=== PATIENT | male | born 1940 | race Caucasian/White ===

== ENCOUNTER 2020-11-02 13:18 | Outpatient (CLI) | payer MEDICARE, SELFPAY | END 2020-11-02 13:19 | disposition home or self-care (01) | LOC: CHSIMG 13:20 | PROVIDERS: PCP Internal Medicine; Visit Provider Internal Medicine | DX: I50.9 Heart failure, unspecified (principal) | CPT/HCPCS: 93306 ==

== ENCOUNTER 2021-06-01 11:26 | Emergency (ER) | payer MEDICARE, SELFPAY ==
--- NOTE | ~2021-06-01 | XR_ITS ---
EXAMINATION: XR chest 2V EXAM DATE: 06/01/2021 13:02 INDICATION: productive cough times one week . TECHNIQUE: Frontal and lateral projections of the chest obtained and reviewed. Comparison is made to prior examination from 05/02/2019. FINDINGS: Left basilar linear opacity probably subsegmental atelectasis. No confluent consolidation, pneumothorax or pleural effusion suspected. Mild cardiomegaly. There is aortic arteriosclerosis. Some thoracic spondylosis. IMPRESSION: 1. Left basilar linear opacity probably atelectasis. 2. Mild cardiomegaly. Reviewed, dictated and finalized at location A. [employer]
[2021-06-01 12:37] VITALS: BP 139/80; PULSE 56; RESP 18; TEMP 36.7; O2SAT 94
[2021-06-01 12:49] LABS: Influenza A QL RT-PCR Negative (Negative); Influenza B QL RT-PCR Negative (Negative); SARS-CoV-2 RNA PCR Negative (Negative)
--- NOTE | 2021-06-01 12:52 | PC.NURSE ---
Radiology called for x-ray.
--- NOTE | 2021-06-01 13:41 | ED.URI ---
HPI - URI/Sore Throat General Chief Complaint: Upper Respiratory Infection Stated Complaint: COUGH CONGESTION Time Seen by Provider: 06/01/21 11:29 Source: patient Mode of arrival: ambulatory Limitations: no limitations History of Present Illness HPI Narrative: 81-year-old man comes in today complaining of cough productive of jung sputum and nasal congestion for the last 2 days. He denies any fever, shortness of breath, chest pain, vomiting or diarrhea. He denies any sick contacts. Has been immunized against COVID. MD elicited complaint: cough, sore throat and rhinorrhea Pertinent past history: pneumonia Onset (ago): day(s) (2) Consistency: constant and other Severity: moderate Description of mucous: other (Jung) Able to tolerate fluids by mouth: Yes Exacerbating factors: nothing Relieving factors: nothing Associated symptoms: nasal congestion, sore throat and cough Treatments prior to arrival: none Related Data Allergies Allergy/AdvReac Type Severity Reaction Status Date / Time No Known Allergies Allergy Verified 06/01/21 12:33 Review of Systems Review of Systems: All systems reviewed & are unremarkable except as noted in HPI and below Constitutional: Constitutional: Denies chills and Denies fever(s) Eyes: Eyes: Denies change in vision and Denies photophobia ENT: Denies dysphagia, Reports nasal congestion and Reports sore throat Cardiovascular: Cardiovascular: Denies chest pain and Denies radiating jaw, neck or arm pain Respiratory: Respiratory: Reports chest congestion, Reports cough, Denies dyspnea and Denies wheezing Gastrointestinal: Gastrointestinal: Denies abdominal pain, Denies diarrhea, Denies nausea and Denies vomiting Genitourinary: Genitourinary: Denies hematuria, Denies dysuria and Denies urinary frequency Musculoskeletal: Musculoskeletal: Denies back pain, Denies arthralgias and Denies joint swelling Integumentary/Breasts: Skin/Breast: Denies pruritus, Denies erythema and Denies rash Neurologic: Denies vertigo, Denies dizziness and Denies syncope Allergic/Immunologic: Allergic/Immunologic: Denies lip swelling, Denies throat swelling and Denies tongue swelling PMFSH Past Medical History Medical History (Updated 06/01/21 @ 13:48 by Bjorn Ram MD) BPH (benign prostatic hyperplasia) GERD (gastroesophageal reflux disease) Hypertension Surgical History Surgical History (Updated 06/01/21 @ 13:44 by Bjorn Ram MD) History of appendectomy Social History Social History (Updated 06/01/21 @ 13:44 by Bjorn Ram MD) Smoking status: Never smoker Alcohol intake: never Substance use: never Living arrangements: with family Exam Const: General: healthy appearing, no acute distress and alert Orientation/consciousness: patient oriented x3 Limitations: no limitations HENMT: Head: normal to inspection Ears: external ears normal, TM's normal bilaterally and EAC's normal General nose exam: Normal nares present Face and sinus: normal facial exam Mouth: Yes moist mucous membranes Throat: posterior oropharynx normal Eyes: Conjunctivae: conjunctivae normal Pupils: Equal, round and reactive pupils present EOM: EOMs intact bilaterally Resp: Effort & Inspection: normal respiratory effort and not labored Auscultation: clear to auscultation bilaterally, no rales, no rhonchi and no wheezes Cardio: Rate: regular rate Rhythm: regular rhythm Heart sounds: no murmurs Skin: General skin exam: normal color, no jaundice and no pallor Rashes: no rashes Neuro: General: patient oriented x3, moves all extremities, no focal motor deficits and CN's II-XI intact bilaterally Speech: normal speech Gait exam (Neuro): Normal gait present Extrem: General: normal to inspection and no clubbing, cyanosis or edema Psych: Appearance: grossly normal and well kempt Mental Status: mental status grossly normal Affect: normal affect Attitude: cooperative Thought content: Yes Normal thou
[2021-06-01 13:45] VITALS: BP 147/67; PULSE 50; RESP 18; O2SAT 94
== END 2021-06-01 14:20 | disposition home or self-care (01) ==
PROVIDERS: Emergency Provider Emergency Medicine; PCP Internal Medicine
DX: R05.9 Cough, unspecified (principal); Z20.822 Contact with and (suspected) exposure to COVID-19; K21.9 Gastro-esophageal reflux disease without esophagitis; I10 Essential (primary) hypertension
CPT/HCPCS: 71046; 87502; 99283; C9803; U0003; U0005

== ENCOUNTER 2021-10-19 11:34 | Outpatient (CLI) | payer MEDICARE, SELFPAY ==
--- NOTE | ~2021-10-19 | XR_ITS ---
EXAMINATION: XR chest 2V DATE: 10/19/2021 12:03 INDICATION: Dyspnea. TECHNIQUE: Frontal and lateral views of the chest were obtained. COMPARISON: Chest 2 views 06/01/2021 FINDINGS: There is mild atelectasis at left lung base. No pleural effusion or pneumothorax. The heart size is normal. There is mild chronic anterior wedging of multiple vertebral bodies. IMPRESSION: 1. Mild atelectasis at left lung base. Reviewed, dictated and finalized at location A.
--- NOTE | ~2021-10-19 | XR_ITS ---
EXAMINATION: XR hip LT min 2V DATE: 10/19/2021 12:04 INDICATION: Left hip pain. TECHNIQUE: 2 views of left hip were obtained. COMPARISON: None. FINDINGS: Bone alignment is normal. No fracture. There is mild left hip osteoarthritis. There is cayetano drocalcinosis in the left hip joint. IMPRESSION: 1. Mild left hip osteoarthritis. Reviewed, dictated and finalized at location A.
== END 2021-10-19 11:35 | disposition home or self-care (01) ==
LOC: CHSIMG 11:36
PROVIDERS: PCP Internal Medicine; Visit Provider Internal Medicine
DX: R06.00 Dyspnea, unspecified (principal); M25.552 Pain in left hip
CPT/HCPCS: 71046; 73502

== ENCOUNTER 2021-10-24 09:27 | Outpatient (CLI) | payer MEDICARE, SELFPAY | END 2021-10-24 09:28 | disposition home or self-care (01) | LOC: CHSCARD 09:29 | PROVIDERS: PCP Internal Medicine; Visit Provider Internal Medicine | DX: R06.00 Dyspnea, unspecified (principal); M25.552 Pain in left hip | CPT/HCPCS: 94060; 94726; 94729 ==

== ENCOUNTER 2021-10-25 07:27 | Outpatient (CLI) | payer MEDICARE, SELFPAY ==
--- NOTE | ~2021-10-25 | MR_ITS ---
EXAMINATION: MR lumbar spine wo con DATE: 10/25/2021 08:30 INDICATION: Low back pain. TECHNIQUE: Magnetic resonance imaging (MRI) of the lumbar spine was performed without intravenous con trast. Sequences included sagittal T2-weighted FSE, sagittal T2-weighted FS FSE, sagittal T1-weighted FSE, and axial T2-weighted FSE. COMPARISON: CT abdomen and pelvis 06/10/2018 FINDINGS: There is 6 degrees levocurvature of lumbar spine. There is 3 mm retrolisthesis of L1 on L2. There is mild chronic anterior wedging of T11 and T12 vertebral bodies. There is moderately decrease d disc height at L1-L2 and L2-L3, severely decreased disc height at L3-L4 and L4-L5, and moderately d ecreased disc height at L5-S1 with endplate remodeling. The distal spinal cord signal intensity is no rmal. The conus medullaris is at T12. 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 The following disc levels a re specifically discussed: L1-L2: The disc is bulging. There is moderate bilateral facet joint osteoarthritis. There is mild rohit ateral neural foraminal stenosis. There is mild central canal stenosis. L2-L3: The disc is bulging and has an annular fissure. There is severe bilateral facet joint osteoart hritis. There is mild bilateral neural foraminal stenosis. There is mild central canal stenosis. L3-L4: The disc is bulging and has an annular fissure. There is severe bilateral facet joint osteoart hritis. There is mild bilateral neural foraminal stenosis. There is mild central canal stenosis. L4-L5: The disc is bulging and has an annular fissure. There is severe bilateral facet joint osteoart hritis. There is mild right and moderate left neural foraminal stenosis. There is mild central canal stenosis. L5-S1: The disc is bulging. There is severe bilateral facet joint osteoarthritis. There is mild right and moderate left neural foraminal stenosis. There is mild central canal stenosis. There is stenosis of the lateral recesses, moderate on the right and severe on the left. IMPRESSION: 1. Severe lumbar spondylosis. Reviewed, dictated and finalized at location B.
== END 2021-10-25 07:28 | disposition home or self-care (01) ==
LOC: CHSIMG 07:28
PROVIDERS: PCP Internal Medicine; Visit Provider Internal Medicine
DX: M54.50 Low back pain, unspecified (principal)
CPT/HCPCS: 72148

== ENCOUNTER 2021-11-10 10:43 | Outpatient (RCR) | payer MEDICARE, SELFPAY ==
--- NOTE | 2021-11-10 13:33 | PTOPEVAL ---
Thank you for referring Guillermo Veras to [facility] The patient is scheduled to be seen for therapy? ____x/week for ___ weeks. Please review, sign, date and return this plan of care FELIZ. I agree with and certify that the following plan of care is medically necessary. Referring Physician Date Admitting Provider: Attending Provider: Hernan Londono MD Referring Provider: *PT Outpatient Evaluation Start: 11/10/21 11:02 Freq: Status: Active Protocol: Document 11/10/21 11:10 [facility] (Rec: 11/10/21 12:58 [id number]) Therapy Assessment Status Assessment Status Assessment Status Evaluation Evaluation Information Problem Diagnosis Pain in Lumbar Spine with Pain in the Sciatic Distribution on L LE Onset 11/08/21 Additional Evaluation Detail oswestry = 44% functionally declined Subjective Information Pt reports that over the Query Text:As Reported By Patient/ course of the last two months, Family he has had increasing amounts of pain in his L leg. He originally thought he had a sprained ankle, but then noticed that the pain has continued to persist. He has gotten imaging showing spondylosis. He has more pain in the L ankle and back of the L leg but also has some back pain. Standing and walking will increase his pain as soon as he gets out of bed. Diagnostic Tests MRI For This Problem Yes: Spondylosis ; No HNP Prior Level of Function Comments Additional Prior Level of Function Pt previously was able to Comments dress himself with no problems but now states he has difficulty when bending over and putting on socks as well as walking. Pain Assessment Timing of Pain Assessment Timing of Pain Assessment Assessment Pain Scale Pain Scale Used Numeric (1 - 10) Self Report Pain Assessment Lower Back Reported Pain Level 4 Pain Description Aching,Numbness Pain Radiation Left Leg Pain Frequency Continuous Greatest Pain Intensity 8 Pain Aggravating Factors ADL's,Changing Position, Exercise/Activity,Walking Pain Score Pain Score 4: Self Report Interventions Used I
== END 2021-11-17 10:03 | disposition home or self-care (01) ==
LOC: CHSPT 10:43
PROVIDERS: PCP Internal Medicine; Visit Provider Internal Medicine
DX: M54.50 Low back pain, unspecified (principal)
CPT/HCPCS: 97014; 97110; 97161; 97162; G0283

== ENCOUNTER 2021-12-08 10:10 | Outpatient (CLI) | payer MEDICARE, SELFPAY ==
--- NOTE | 2021-12-08 12:00 | NEURO_ITS ---
Impression: # Complains of numbness of feet. # Asymmetrical sensory/ motor neuropathy. # Neurogenic changes on needle/EMG exam. # Clinical correlation recommended. Nerve Conduction Studies Anti Sensory Summary Table Stim Site NR Peak (ms) P-T Amp (?V) Site1 Site2 Delta-P (ms) Dist (cm) Jasen (m/s) Left Sup Fibular Anti Sensory (Ant Lat Mall) NO RESPONSE 14 cm NR 14 cm Ant Lat Mall 16.0 Right Sup Fibular Anti Sensory (Ant Lat Mall) NO RESPONSE 14 cm NR 14 cm Ant Lat Mall 16.0 Left Sural Anti Sensory (Lat Mall) NO RESPONSE Calf NR Calf Lat Mall 16.0 Right Sural Anti Sensory (Lat Mall) NO RESPONSE Calf NR Calf Lat Mall 16.0 Motor Summary Table Stim Site NR Onset (ms) O-P Amp (mV) Site1 Site2 Delta-0 (ms) Dist (cm) Jasen (m/s) Left Peroneal Motor (Vastus Med) NO RESPONSE Ankle NR Popit Ankle 0.0 Popit NR Right Peroneal Motor (Vastus Med) Ankle 4.1 1.9 Popit Ankle 8.8 39.0 44 Popit 12.9 1.5 Left Tibial Motor (Abd Frazier Brev) NO RESPONSE Ankle NR Knee NR Right Tibial Motor (Abd Frazier Brev) Ankle 4.5 2.7 Knee Ankle 11.0 44.0 40 Knee 15.5 2.0 F Wave Studies NR F-Lat (ms) L-R F-Lat (ms) Left Peroneal (Mrkrs) (EDB) NO RESPONSE NR Right Peroneal (Mrkrs) (EDB) 59.04 Left Tibial (Mrkrs) (Abd Hallucis) NO RESPONSE NR Right Tibial (Mrkrs) (Abd Hallucis) 58.30 EMG Side Muscle Nerve Root Ins Act Fibs Amp Dur Recrt Comment Right AntTibialis Dp Br Fibular L4-5 Nml Nml Nml Nml Nml Right Gastroc Tibial S1-2 Nml Nml Nml Nml Nml Right Fibularis Long Sup Br Fibular L5-S1 Nml Nml Nml Nml Nml Right Flex Dig Long Tibial L5-S2 Nml Nml Nml Nml Nml Right Ext Dig Brev Dp Br Fibular L5, S1 Nml Nml Nml Nml Nml Left AntTibialis Dp Br Fibular L4-5 Nml Nml Nml >12ms Reduced Left Gastroc Tibial S1-2 Nml Nml Nml >12ms Reduced Left Fibularis Long Sup Br Fibular L5-S1 Nml Nml Nml >12ms Reduced Left Flex Dig Long Tibial L5-S2 Nml Nml Nml >12ms Reduced Left Ext Dig Brev Dp Br Fibular L5, S1 Nml Nml Nml >12ms Reduced MTDD
== END 2021-12-08 10:11 | disposition home or self-care (01) ==
LOC: ANHNEURO 10:11
PROVIDERS: PCP Internal Medicine
DX: G62.9 Polyneuropathy, unspecified (principal)
CPT/HCPCS: 95886; 95910

== ENCOUNTER 2022-04-17 11:57 | Emergency (ER) | payer MEDICARE, SELFPAY ==
--- NOTE | ~2022-04-17 | XR_ITS ---
EXAMINATION: XR knee RT 3V DATE: 04/17/2022 12:27 INDICATION: Right knee pain and swelling. TECHNIQUE: 3 views of right knee were obtained. COMPARISON: Right tibia and fibula radiographs 10/27/2016 FINDINGS: There is a total right knee arthroplasty with patellar resurfacing in near-anatomic alignme nt. No fracture. No periprosthetic lucency to suggest loosening or infection. There is a large knee j oint effusion. There are loose bodies in the knee joint. IMPRESSION: 1. Total right knee arthroplasty in near-anatomic alignment. 2. Large right knee joint effusion with loose bodies. Reviewed, dictated and finalized at location A.
[2022-04-17 12:00] VITALS: BP 138/54; PULSE 63; RESP 17; TEMP 36.8; O2SAT 95
[2022-04-17 12:06] VITALS: BP 138/54; PULSE 68; RESP 17; TEMP 36.8; O2SAT 94
--- NOTE | 2022-04-17 12:09 | ED.EXTPRO ---
HPI - Extremity Problem General Chief complaint: Extremity Problem,Nontraumatic Stated complaint: right knee pain Time Seen by Provider: 04/17/22 12:08 Source: patient Mode of arrival: ambulatory History of Present Illness HPI Narrative: 82-year-old male with a history of hypertension, GERD, BPH, arthritis status post bilateral knee replacement presents to the ER with -- right knee pain/ swelling for past 3 days. No history of trauma. Complains of morning stiffness which gets better as the day goes by. MD Complaint: joint paint Onset (ago): day(s) ( started 3 days ago) Pain Consistency: constant Location: right and knee Quality: aching Radiation: none Relieving factors: nothing Exacerbating factors: nothing Related Data Home Medications Medication Instructions Recorded Confirmed amlodipine 10 mg tablet 10 mg PO DAILY 04/17/22 04/17/22 dutasteride 0.5 mg capsule 0.5 mg PO DAILY 04/17/22 04/17/22 furosemide 40 mg tablet 40 mg PO DAILY 04/17/22 04/17/22 losartan 100 mg tablet 100 mg PO DAILY 04/17/22 04/17/22 metoprolol succinate 50 mg 50 mg PO DAILY 04/17/22 04/17/22 tablet,extended release 24 hr omeprazole 40 mg capsule,delayed 40 mg PO BID 04/17/22 04/17/22 release potassium chloride 10 mEq 10 meq PO TID 04/17/22 04/17/22 capsule,extended release pravastatin 40 mg tablet 40 mg PO DAILY 04/17/22 04/17/22 tamsulosin 0.4 mg capsule 0.4 mg PO DAILY 04/17/22 04/17/22 Allergies Allergy/AdvReac Type Severity Reaction Status Date / Time No Known Allergies Allergy Verified 04/17/22 12:15 Review of Systems Review of Systems: All systems reviewed & are unremarkable except as noted in HPI and below Constitutional: Constitutional: Reports as per HPI and Reports no additional constitutional complaints Eyes: Eyes: Reports as per HPI and Reports no additional eye complaints ENT: Reports system reviewed and no additional complaints, except as documented and Reports as per HPI Cardiovascular: Cardiovascular: Reports as per HPI and Reports no additional cardiovascular complaints Respiratory: Respiratory: Reports as per HPI and Reports no additional respiratory complaints Gastrointestinal: Gastrointestinal: Reports as per HPI and Reports no additional gastrointestinal complaints Genitourinary: Genitourinary: Reports no additional male genitourinary complaints and Reports as per HPI Musculoskeletal: Musculoskeletal: Reports no additional musculoskeletal complaints and Reports as per HPI Comments: right knee pain with swelling. Integumentary/Breasts: Skin/Breast: Reports system reviewed and no additional complaints, except as docu and Reports as per HPI Neurologic: Reports system reviewed and no additional complaints, except as documented and Reports as per HPI Psychiatric: Psychiatric: Reports no additional psychiatric complaints and Reports as per HPI Endocrine: Endocrine: Reports no additional endocrine complaints and Reports as per HPI Hematologic/Lymphatic: Hematologic/Lymphatic: Reports no additional hematologic/lymphatic complaints and Reports as per HPI Allergic/Immunologic: Allergic/Immunologic: Reports no additional allergic/immunologic complaints and Reports as per HPI PMFSH Past Medical History Medical History BPH (benign prostatic hyperplasia) GERD (gastroesophageal reflux disease) Hypertension Surgical History Surgical History History of appendectomy Social History Social History Smoking status: Never smoker Alcohol intake: never Substance use: never Exam Const: General: no acute distress Nutritional Appearance: well nourished Orientation/consciousness: patient oriented x3 Limitations: no limitations HENMT: Head: normal to inspection Ears: external ears normal Face/Nose/Sinus: Normal external nose present F
[2022-04-17 13:52] VITALS: BP 142/65; PULSE 56; RESP 16; TEMP 36.9; O2SAT 96
== END 2022-04-17 13:57 | disposition home or self-care (01) ==
PROVIDERS: Emergency Provider Internal Medicine Critical Care Medicine; PCP Internal Medicine
DX: M25.461 Effusion, right knee (principal); M23.41 Loose body in knee, right knee; M25.561 Pain in right knee; K21.9 Gastro-esophageal reflux disease without esophagitis; I10 Essential (primary) hypertension
CPT/HCPCS: 73562; 99283

== ENCOUNTER 2023-06-05 13:38 | Outpatient (RCR) | payer MEDICARE, SELFPAY ==
--- NOTE | 2023-06-05 14:34 | OPREHPOC ---
Outpatient Therapy Plan of Care This is a Multidisciplinary Plan of Care that may contain components documented by all disciplines (PT, OT, and ST.) PT Problem 1 PT Problem #1 Knowledge Deficit PT Goal 1 Goal The patient will be independent in a home exercise program. Target Visit 10 PT Problem 2 PT Problem #2 Impaired Balance PT Goal 1 Goal The patient will improve the Tinetti Balance score to 22/28 indicating less fall risk. Target Visit 10 PT Problem 3 PT Problem #3 Impaired Gait PT Goal 1 Goal The patient will demonstrate the ability to ambulate 600 feet without shuffling to improve steadiness with gait. Target Visit 10 PT Problem 4 PT Problem #4 Impaired Endurance PT Goal 1 Goal The patient will be able to ambulate 1,200 feet during the 6 minute walk test to improve community ambulation. Target Visit 10
--- NOTE | 2023-06-05 14:34 | PTOPEVAL1 ---
Assessment and note entered by Melissa Mckeon, PT Evaluation Information Assessment Status Evaluation Diagnosis Unsteady Gait, Peripheral Neuropathy Subjective Information Guillermo Veras reports he has had a diagnosis of peripheral neuropathy making his feet numb. He notes the numbness got worse about two months ago for unknown reasons. He denies falls recently. He uses a walking stick most days. He notes he does have near falls when he first starts walking. He has had lightheadedness occasionally when he stands up. He does take medicine for high blood pressure. He also notes he has a bad right hip. Reported Pain Level Pain Score 0: Self Report Assessment PT Clinical Summary Guillermo Veras presents with unsteady gait and decreased balance due to peripheral neuropathy. He has difficulty with walking without an assistive device and unsteadiness when he first stands up. He objectively demonstrates decreased right > left hip abduction strength, decreased balance, and impaired gait. He is a high fall risk per standardized balance tests. He will benefit from skilled PT to address these limitations. Plan of Care Interventions Neuro Re-education,Patient/Caregiver Educati, Therapeutic Activities,Therapeutic Exercise PT Services Indicated Yes Treatment Frequency and 2 times a week for 10 visits Duration These treatments will address the objective and functional deficits as defined above. The patient will be advanced safely and appropriately in order for the patient to progress towards his/her prior level of function. Additional exercises will be introduced and as well as a comprehensive home exercise program upon discharge, if needed, ?to ensure carryover of functional gains achieved in the clinic. This treatment plan has been reviewed and agreement upon by the patient.
--- NOTE | 2023-07-06 16:46 | OPREHPOC ---
Outpatient Therapy Plan of Care This is a Multidisciplinary Plan of Care that may contain components documented by all disciplines (PT, OT, and ST.) PT Problem 1 PT Problem #1 Knowledge Deficit PT Goal 1 Goal The patient will be independent in a home exercise program. Target Visit 10 Progress Met PT Problem 2 PT Problem #2 Impaired Balance PT Goal 1 Goal The patient will improve the Tinetti Balance score to 22/28 indicating less fall risk. Target Visit 16 Comment progressing PT Problem 3 PT Problem #3 Impaired Gait PT Goal 1 Goal The patient will demonstrate the ability to ambulate 600 feet without shuffling to improve steadiness with gait. Target Visit 10 Progress Met PT Problem 4 PT Problem #4 Impaired Endurance PT Goal 1 Goal The patient will be able to ambulate 1,200 feet during the 6 minute walk test to improve community ambulation. Target Visit 16
--- NOTE | 2023-07-06 16:46 | PTOPREEVAL ---
Assessment and note entered by Katelyn Taylor DPT Evaluation Information Assessment Status Evaluation Diagnosis Unsteady Gait, Peripheral Neuropathy Subjective Information Patient reports he has improved since start of PT. He reports his hip pain has been less. He denies pain since start of care. He reports he feels his balance has improve but can still have instances of shuffling. He reports he would like to continue with PT. Reported Pain Level Pain Score 2: Self Report Assessment PT Clinical Summary Mr. Veras has attended 10 visits of skilled PT. He is progress with gait and balance at this time. He does continue to demonstrate shuffling gait pattern and have impaired scoring on the Tinetti Balance test. He has improved distance with 6 minute walk test but is still limited in community ambulation distance. He would benefit from continued skilled PT to address remaining impairments and return to PLOF. Plan of Care Interventions Neuro Re-education,Patient/Caregiver Educati, Therapeutic Activities,Therapeutic Exercise PT Services Indicated Yes Treatment Frequency and 2x weekly for 6 visits Duration These treatments will address the objective and functional deficits as defined above. The patient will be advanced safely and appropriately in order for the patient to progress towards his/her prior level of function. Additional exercises will be introduced and as well as a comprehensive home exercise program upon discharge, if needed, ?to ensure carryover of functional gains achieved in the clinic. This treatment plan has been reviewed and agreement upon by the patient.
--- NOTE | 2023-07-26 16:53 | OPREHPOC ---
Outpatient Therapy Plan of Care This is a Multidisciplinary Plan of Care that may contain components documented by all disciplines (PT, OT, and ST.) PT Problem 1 PT Problem #1 Knowledge Deficit PT Goal 1 Goal The patient will be independent in a home exercise program. Target Visit 10 Progress Met PT Problem 2 PT Problem #2 Impaired Balance PT Goal 1 Goal The patient will improve the Tinetti Balance score to 22/28 indicating less fall risk. Target Visit 16 Progress Met Comment . PT Problem 3 PT Problem #3 Impaired Gait PT Goal 1 Goal The patient will demonstrate the ability to ambulate 600 feet without shuffling to improve steadiness with gait. Target Visit 10 Progress Met PT Problem 4 PT Problem #4 Impaired Endurance PT Goal 1 Goal The patient will be able to ambulate 1,200 feet during the 6 minute walk test to improve community ambulation. Target Visit 16 Progress Not Met
--- NOTE | 2023-07-26 16:54 | PTOPDC ---
Assessment and note entered by JT File, PT Evaluation Information Assessment Status Discharge Diagnosis Unsteady Gait, Peripheral Neuropathy Subjective Information patient reports he feels Good today. he has no pain, and has had no falls. he reports he is ready to make today his last therapy visit. Reported Pain Level Pain Score 0: Self Report Assessment PT Clinical Summary mr ayala presents to skilled PT today for his 16th skilled therapy visit. he has had no falls during his time in therapy. he has now achieved goals for tinetti balance score, and displays a low fall risk. however, he has not met goal for ambulation distance during 6 minute walk test. he is ready to DC skilled PT and continue with independent HEP at home. patient may benefit from bi-weekly attendance in fall prvention class. he was educated in this free class today. Plan of Care PT Services Indicated Yes
== END 2023-07-26 18:11 | disposition home or self-care (01) ==
LOC: CHSPT 13:38
PROVIDERS: PCP Internal Medicine; Visit Provider Internal Medicine
DX: R26.81 Unsteadiness on feet (principal); G62.9 Polyneuropathy, unspecified
CPT/HCPCS: 97110; 97112; 97150; 97161

== ENCOUNTER 2023-10-10 10:18 | Outpatient (CLI) | payer MEDICARE, SELFPAY ==
[2023-10-10 10:31] LABS: Basophils Absolute Auto 0.03 K/mm3 (0.00-0.10); Basophils Percent Auto 0.3 % (0.0-1.0); Eosinophils Absolute Auto 0.22 K/mm3 (0.02-0.50); Eosinophils Percent Auto 2.3 % (1.0-6.0); Hematocrit 45.9 % (37.0-46.0); Hemoglobin 15.1 g/dL (12.4-15.3); Immature Granulocyte Absolute 0.03 K/mm3 (0.00-0.00); Immature Granulocyte Percent A 0.3 % (0.0-0.0); Lymphocytes Absolute Auto 1.25 K/mm3 (1.10-4.50); Lymphocytes Percent Auto 13.3 % (18.0-42.0); Mean Corpuscular HGB Conc 32.9 g/dL (32-36); Mean Corpuscular Hemoglobin 31.7 pg (27.0-31.0); Mean Corpuscular Volume 96.2 fL (78.0-102.0); Mean Platelet Volume 9.5 fl (8.7-11.0); Monocytes Absolute Auto 0.75 K/mm3 (0.10-0.90); Neutrophils Absolute Auto 7.09 K/mm3 (1.70-7.20); Neutrophils Percent Auto 75.8 % (50.0-70.0); Platelet Count Result 203 K/mm3 (150-420); Red Blood Count 4.77 M/mm3 (4.70-6.10); Red Cell Distribution Width 12.1 % (11.6-14.4); White Blood Count 9.4 K/mm3 (4.8-10.8)
[2023-10-10 11:13] LABS: Anion Gap 8 mmol/L (4-12); Blood Urea Nitrogen 22 mg/dL (7-18); Calcium 10.6 mg/dL (8.5-10.1); Carbon Dioxide 32 mmol/L (21-32); Chloride 105 mmol/L (98-108); Estimated Glomerular Filt Rate > 60; Glucose 98 mg/dL (70-99); Osmolality Calculated 303 mOsm/kg (285-295); Potassium 4.8 mmol/L (3.5-5.1); Sodium 145 mmol/L (136-145)
== END 2023-10-10 10:19 | disposition home or self-care (01) ==
LOC: CHSLAB 10:20
PROVIDERS: PCP Internal Medicine; Visit Provider Internal Medicine Cardiovascular Disease
DX: Z01.812 Encounter for preprocedural laboratory examination (principal); I10 Essential (primary) hypertension
CPT/HCPCS: 36415; 80048; 85025

== ENCOUNTER 2025-01-13 12:55 | Outpatient (CLI) | payer MEDICARE, SELFPAY ==
--- NOTE | ~2025-01-13 | US_ITS ---
EXAMINATION: US carotid duplex BI DATE: 01/13/2025 13:24 INDICATION: Dizziness TECHNIQUE: Grayscale, color Doppler, and pulsed Doppler images of the cervical carotid arteries were obtained. The degree of vessel stenosis is placed in one of the following categories: normal, <50%, 5 0-69%, >=70% but less than near-occlusion, near-occlusion, or total occlusion. Note that percent sten osis relative to normal distal artery lumen diameter is indirectly measured from velocity measurement s as described by Enrrique, et al. Radiology 2003; 229:340-346. Notes: Normal: Peak systolic velocity <125 centimeters/sec and no plaque <50%. Peak systolic velocity <125 ( EDV <40; ICA/CCA PSV ratio <2.0; used these factors only a tandem lesions or low cardiac output or co ntralateral disease) 50-69 %: PSV 125-230 (EDV 40-100; ratio 2-4) >= 70% but less than near occlusion: PSV greater than 230 (EDV > 100; ratio> 4.0) Near Occlusion: PSV that is variable; markedly narrowed lumen Occlusion: Absent flow on color/spectral Doppler and no lumen on hyman scale. COMPARISON: None. FINDINGS: RIGHT: The right common carotid artery (CCA) peak systolic velocity (PSV) is 128 cm/s. The right internal ca rotid artery (ICA) PSV is 114 cm/s. The right ICA end-diastolic velocity (EDV) is 17 cm/s. The right ICA/CCA PSV ratio is 0.9. The external carotid artery (ECA) PSV is 122 cm/s. There is antegrade flow in the right vertebral artery. LEFT: The left CCA PSV is 98 cm/s. The left ICA PSV is 136 cm/s. The left ICA EDV is 20 cm/s. The left ICA/ CCA PSV ratio is 1.4. The ECA PSV is 152 cm/s. There is antegrade flow in the left vertebral artery. IMPRESSION: 1. Less than 50% stenosis in the right internal carotid artery by sonographic criteria. 2. 50-69% stenosis in the left internal carotid artery by sonographic criteria. Reviewed, dictated and finalized at location A. IMPRESSION: 1. Less than 50% stenosis in the right internal carotid artery by sonographic c riteria. 2. 50-69% stenosis in the left internal carotid artery by sonographic criteria.
--- OUTSIDE RECORDS SUMMARY | 2025-01-13 13:07 | XMS_ITS | Referral Summary ---
Author Organization [facility] [address] Address [address] [place] [address] Care Team Providers Care Program Clinician Name Role Phone Hernan Londono MD Primary Care Provider [phone] Encounters Date Type Department Care Team Description 12/11/[address] [facility] Medical [facility] Cardiology [address] [place] [phone] Danny Johnson MD 12/11/2024 12:30 PM CDT Ancillary Procedure [facility] Cardiology [address] [facility] [address] [place] [phone] Bifascicular block; Bradycardia; Cardiac pacemaker in situ from Last 3 Months Allergies No known active allergies Medications dutasteride (AVODART) 0.5 mg capsule Take 1 tablet by mouth daily 12/15/2011 Active aspirin 81 mg chewable tablet Take by mouth daily 11/10/2003 Active omeprazole (PriLOSEC) 40 mg capsule Take 1 capsule (40 mg total) by mouth 2 (two) times a day 01/18/2022 Active tamsulosin (FLOMAX) 0.4 mg extended release capsule Take by mouth daily 12/30/2003 Active amLODIPine (NORVASC) 10 mg tablet Take 1 tablet (10 mg total) by mouth daily 11/16/2021 Active furosemide (LASIX) 40 mg tablet Take 1 tablet (40 mg total) by mouth daily 11/16/2021 Active coenzyme Q10 100 mg capsule Take 2 tablets by mouth daily 12/15/2011 Active potassium chloride ER 10 mEq CR capsule TAKE 1 CAPSULE BY MOUTH THREE TIMES DAILY WITH FOOD 01/18/2022 Active losartan (COZAAR) 100 mg tablet Take 1 tablet (100 mg total) by mouth daily Active ibzbf-7-xgf-epa -dpa-fish oil 1,050-1,200 mg capsule 1 capsule Active ascorbic acid (VITAMIN C) 500 mg tablet,chewable Acti ve yiyirwgu71-fmxa -Lmfolate-algal 27 mg iron-1.13 mg-581.92 mg capsule Take by mouth Active cyanocobalamin (Vitamin B-12) 100 mcg tabletIndicatio ns:Prevention of Vitamin B12 Deficiency Take 1 tablet (100 mcg total) by mouth daily Active cholecalciferol (VITAMIN D-3) 1,000 unit capsule Take 1 capsule (1,000 Units total) by mouth daily 12/15/2011 Active levOCARNitine tartrate 250 mg capsule Take 500 mg by mouth daily Active metoprolol XL (TOPROL-XL) 25 mg extended release tabletIndicatio ns:Coronary artery disease of [place] artery of [place] heart with stable angina pectoris Take 1 tablet (25 mg total) by mouth daily 90 tablet 3 12/04/2023 Active ezetimibe (ZETIA) 10 mg tablet Take 1 tablet by mouth once daily 90 tablet 10/20/2024 Active pravastatin (PRAVACHOL) 80 mg tablet Take 1 tablet by mouth once daily 90 tablet 10/20/2024 Active Active Problems Problem Noted Date Diagnosed Date Cardiac pacemaker in situ 10/10/2023 Overview (10/10/2023): [employer] Assurity Dual Pacemaker. Dx; Bradycardia, Bifascicilar Block. DOI 10/15/2023-Aric. Alexandru hernandez. Morbid (severe) obesity due to excess calories 0 09/14/2023 Abnormal stress test 01/23/2023 HUNTER (dyspnea on exertion) 10/10/2022 Other chest pain 06/07/2022 First degree AV block 06/07/2022 Bradycardia 06/07/2022 Bifascicular block 06/07/2022 Primary hypertension 02/03/2022 Coronary artery disease of n ative artery of [place] heart with stable angina pectoris 02/03/2022 Mixed hyperlipidemia 02/03/2022 Abnormal ECG 02/03/2022 Class 1 obesity due to exces s calories with serious comorbidity and body mass index (BMI) of 34.0 to 34.9 in adult 02/03/2022 Social History Tobacco Use Types Packs/Day Years Used Date Smoking Tobacco: Former Cigarettes Q uit: 2000 Tobacco Cessation:Counseling Given: Not Answered AUDIT-C Answer Date Recorded Frequency of Alcohol Consumption Not on file 10/15/2023 Q2: How many drinks containi ng alcohol do you have on a typical day when you are drinking? Patient does not drink Frequency of Binge Drinking Not on file 02/2024 Personal Safety Answer Date Recorded Have you ever been in or are you currently in a harmful physical or emotional relationship or is someone making you feel afraid or unsafe? Denies 10/15/2023 Sex and Gender Information Value Date Recorded Sex Assigned at Not on file Legal Sex Male 11:19 AM CDT Gender Identity Not on file Sexual Orientation Not on file Last Filed Vital Signs Vital Sign Reading Time Taken Comments Blood Pressure 156/74 08/15/2024 1:47 PM FIRST AID OFFICER Pulse 78 08/15/2024 1:47 PM FIRST AID OFFICER Temperature 36.4 C (97.5 F) 10/16/2023 7:45 AM CDT Respiratory Rate 14 01/15/2024 9:54 AM CDT Oxygen Saturation 94% 08/15/2024 1:47 PM FIRST AID OFFICER Inhaled Oxygen Concentration - - Weight 116.6 kg (257 lb) 08/15/2024 1:47 PM FIRST AID OFFICER Height 180.3 cm (5' 11) 08/15/2024 1:47 PM FIRST AID OFFICER Body Mass Index 35.84 08/15/2024 1:47 PM FIRST AID OFFICER Plan of Treatment Not on file Medical Devices Implanted Type Area Catering Sous Chef Device Identifier Shelf Expiration Date Model / Serial / Lot [employer] Tendril Sts 6fr 58cm Is-1 Connector Active Fixation Bipolar Soft 2087tc/58 - [id number] - [id number] Implanted:Qty: 1 on 10/15/2023 by Tyron Corbett MD at [facility] [employer] 09/05/2026 2088TC/58 / [id number] / [employer] Tendril Sts 6fr 52cm Is-1 Connector Active Fixation Bipolar Soft 52 - [id number] - [id number] Implanted:Qty: 1 on 10/15/2023 by Tyron Corbett MD at [facility] Lead [employer] 09/05/2026 2088TC/52 / [id number] / [employer] Assurity Mri [id number] Chamber Is-1 Connector Thk6mm Pacemaker [id number] - [id number] - [id number] Implanted:Qty: 1 on 10/15/2023 by Tyron Corbett MD at [facility] Pacemaker [employer] 02/05/2025 [id number] / [id number] / Procedures Procedure Name Priority Date/Time Associated Diagnosis Comments DEVICE CHECK - REMOTE Routine 12/11/2024 4:57 PM CDT Bifascicular block Bradycardia Cardiac pacemaker in situ from Last 3 Months Results * DEVICE CHECK - REMOTE (12/11/2024 4:57 PM CDT) Anatomical Region Laterality Modality Other Narrative 12/30/2024 12:50 PM CDT [employer] Assurity Dual Pacemaker. Dx; Bradycardia, Bifascicular Block. NSVT noted on 01/14/24. DOI 10/15/2023-Aric. [employer] remote. [employer] remote alert and notification received for long AT AF episode. 8 hours of AFib noted on 12/07/2024. Ventricular rate controlled. Presenting rhythm: APVP. Medications: ASA 81 mg, Toprol-XL. See scanned report. [place] remote scheduled 01/28/2025. Office follow-up with Dr. Johnson scheduled 02/17/2025. Angelica Mary, RN Danny Johnson MD CV CARDIAC SERVICES PROC EDURES Final Result from Last 3 Months Insurance MEDICARE MEDICARE BLUE CROSS MEDICARE SUPPLEMENT MEDICARE [facility] Advance Directives For more information, please contact: [phone] * Full Code (Latest Code Status on File) Date Activated Date Inactivated Comments 10/15/2023 9:42 AM 10/16/2023 4:02 PM Care Teams Program Clinician Relationship Specialty Start Date End Date Hernan Londono MD [address] [place] [address] PCP - General Internal Medicine 10/20/21
--- OUTSIDE RECORDS SUMMARY | 2025-01-13 13:07 | XMS_ITS | Encounter Summary ---
Author Organization [facility] Address [address] [place] [address] Care Team Providers Care Adhesive Bonding Machine Operator Name Role Phone Hernan Londono MD Primary Care Provider [phone] Jung Cueto MD Unavailable [phone] Encounter Details Date Type Department Care Team (Late st Contact Info) Description 03/13/[address] [facility] CONVERSION [address] [place] [address] , Generic Conversion, Social History Tobacco Use Types Packs/Day Years Used Date Smoking Tobacco: Never Assessed Sex and Gender Information Value Date Recorded Sex Assigned at Not on file Legal Sex Male 10:44 PM CDT Gender Identity Not on file Sexual Orientation Not on file documented as of this encounter Plan of Treatment Not on file documented as of this encounter Visit Diagnoses Not on filedocumented in this encounter Care Teams Adhesive Bonding Machine Operator Relationship Specialty Start Date End Date Hernan Londono MD [address] [place] [address] PCP - General INTERNAL MEDICINE 09/19/17 Jung Cueto MD [address] [place] [address] [place] Miter Operator CARDIOVASCULAR DISEASE 09/19/17 documented as of this encounter
--- OUTSIDE RECORDS SUMMARY | 2025-01-13 13:07 | XMS_ITS | Clinical Summary ---
Author Organization [facility] [address] [facility] [address] Address [address] [place] [address] Care Team Providers Care Sap Basis Administrator Name Role Phone Hernan Londono MD Primary Care Provider [phone] Allergies No known active allergies Medications dutasteride [...] (100 mg total) by mouth daily Active rmdpp-9-mox-epa -dpa-fish oil 1,050-1,200 mg capsule 1 capsule Active ascorbic acid (VITAMIN C) 500 mg tablet,chewable Acti ve mbaejyew67-yjhr -Lmfolate-algal 27 mg iron-1.13 mg-581.92 mg capsule [...] extended release tabletIndicatio ns:Coronary artery disease of [place] artery of [place] heart with stable angina pectoris Take 1 [...] artery disease of n ative artery of [place] heart with stable angina pectoris 02/03/2022 Mixed hyperlipidemia 02/03/2022 Abnormal ECG 02/03/2022 Class 1 obesity due to exces s calories with serious comorbidity and body mass index (BMI) of 34.0 to 34.9 in adult 02/03/2022 Encounters Date Type Department Care Team Description 12/11/2024 12:30 PM CDT Ancillary Procedure [facility] Cardiology [address] [place] [address] [place] [phone] Bifascicular block; Bradycardia; Cardiac pacemaker in situ 12/11/2024 Telephone [facility] [address] [place] [address] [place] [phone] Danny Johnson MD from Last 3 Months Surgical History Surgery Date Site/Laterality Comments KNEE SURGERY Left APPENDECTOMY HERNIA REPAIR Medical History Medical History Date Comments Hyperlipidemia CHF (congestive heart failure) (HCC) Hypertension Enlarged prostate Neuropathy Bradycardia Family History Medical History Relation Name Comments Cancer Father Heart failure Mother Relation Name Status Comments Father Mother Social History Tobacco Use Types Packs/Day Years Used Date Smoking Tobacco: Former Cigarettes Q uit: 2001 Tobacco Cessation:Counseling Given: Not Answered AUDIT-C Answer [...] on file Sexual Orientation Not on file Obstetrics History Last Filed Vital Signs Vital Sign Reading Time Taken Comments Blood Pressure 156/74 08/15/2024 1:47 PM NATIONAL COVERAGE SPECIALIST Pulse 78 08/15/2024 1:47 PM NATIONAL COVERAGE SPECIALIST Temperature 36.4 C (97.5 F) 10/16/2023 7:45 AM CDT Respiratory Rate 14 01/15/2024 9:54 AM CDT Oxygen Saturation 94% 08/15/2024 1:47 PM NATIONAL COVERAGE SPECIALIST Inhaled Oxygen Concentration - - Weight 116.6 kg (257 lb) 08/15/2024 1:47 PM NATIONAL COVERAGE SPECIALIST Height 180.3 cm (5' 11) 08/15/2024 1:47 PM NATIONAL COVERAGE SPECIALIST Body Mass Index 35.84 08/15/2024 1:47 PM NATIONAL COVERAGE SPECIALIST Plan of Treatment Health Maintenance Due Date Last Done Comments Depression Screening 1941 DTaP/Tdap/Td Vaccine (1 - Tdap) 1952 Hepatitis B Screening 1959 Zoster Vaccine (1 of 2) 1991 Well Visit 65+ 2006 Pneumococcal vaccine 65+ (2 of 2 - PPSV23) 02/03/2015 12/09/2014, 04/30/2009 Covid-19 Vaccine (4 - 2024-2 5 season) 2024 06/21/2021, 11/19/2020, 10/22/2020 Fall Risk Assessment 10/15/2024 10/16/2023, 10/09/19 Influenza Vaccine (#1) 2025 , 04/27/2020, 04/30/2019, Additional history exists Medical Devices Implanted Type Area Human Resources Benefits Administrator Device Identifier Shelf Expiration Date Model / Serial / Lot [employer] Tendril Sts 6fr 58cm Is-1 Connector Active Fixation Bipolar Soft 2088tc/58 - [id number] - [id number] Implanted:Qty: 1 on 10/15/2023 by Tyron Corbett MD at [facility] Lead [employer] 09/05/2026 2088TC/58 / [id number] / [employer] Tendril Sts 6fr 52cm Is-1 Connector Active Fixation Bipolar Soft 2087tc/52 - [id number] - [id number] Implanted:Qty: 1 on 10/15/2023 by Tyron Corbett MD at [facility] Lead [employer] 09/05/20268TC/52 / [id number] / [employer] Assurity Mri [id number] Chamber Is-1 Connector Thk6mm Pacemaker [id number] - [id number] - [id number] Implanted:Qty: 1 on 10/15/2023 by Tyron Corbett MD at [facility] Pacemaker [employer] 02/05/2025 [id number] / [id number] / Procedures Procedure Name Priority Date/Time Associated Diagnosis Comments DEVICE CHECK - REMOTE Routine 12/11/2024 4:57 PM CDT Bifascicular block Bradycardia Cardiac pacemaker in situ from Last 3 Months Results * DEVICE CHECK - REMOTE (12/11/2024 4:57 PM CDT) Anatomical Region Laterality Modality Other Narrative 12/30/2024 12:50 PM CDT Gauthier Assurity Dual Pacemaker. Dx; Bradycardia, Bifascicular Block. NSVT noted on 01/14/24. DOI 10/15/2023-Aric. Alexandru remote. [place] remote alert and notification received for long AT AF episode. 8 hours of AFib noted on 12/07/2024. Ventricular rate controlled. Presenting rhythm: APVP. Medications: ASA 81 mg, Toprol-XL. See scanned report. [place] remote scheduled 01/28/2025. Office follow-up with Dr. Johnson scheduled 02/17/2025. Angelica Mary RN Danny Johnson MD CV CARDIAC SERVICES PROC EDURES Final Result from Last 3 Months Insurance MEDICARE MEDICARE [facility] MEDICARE SUPPLEMENT MEDICARE [facility] Advance Directives For more information, please contact: [phone] * Full Code (Latest Code Status on File) Date Activated Date Inactivated Comments 10/15/2023 9:42 AM 10/16/2023 4:02 PM Care Teams Sap Basis Administrator Relationship Specialty Start Date End Date Hernan Londono MD [address] [place] [address] PCP - General Internal Medicine 10/20/21
--- OUTSIDE RECORDS SUMMARY | 2025-01-13 13:07 | XMS_ITS | Clinical Summary ---
Author Organization [facility] Address [address] [place] [address] Care Team Providers Care Contact Lens Blocker Name Role Phone Hernan Londono MD Primary Care Provider [phone] Jung Cueto MD Unavailable [phone] Allergies No known active allergies Medications Vitamin D, Cholecalciferol , 1000 UNITS Cap Take 1 tablet by mouth daily. 2 Active Ascorbic Acid (VITAMIN C) 500 MG Cap Take 1 tablet by mouth daily. 2 Active Simethicone 80 MG Tab Simethicone 80mg; take as directed; 0; 15-Dec-2011; Active 2 Active omeprazole 20 MG capsule Take 1 tablet by mouth daily. 2 Active Multiple Vitamins-Minera ls (MULTIVITAMIN ADULT OR) Take by mouth daily. 4 Active furosemide (LASIX) 20 MG tablet Take 1 tablet by mouth daily. 2 Active Garlic 1000 MG capsule Take 1 tablet by mouth daily. 2 Active tamsulosin (FLOMAX) 0.4 MG Cap Take by mouth daily. 4 Active Co-Enzyme Q-10 100 MG Cap Take 2 tablets by mouth daily. 2 Active dutasteride (AVODART) 0.5 MG capsule Take 1 tablet by mouth daily. 2 Active aspirin 81 MG chewable tablet Chew by mouth daily. 4 Active amlodipine 10 MG tablet Take 1 tablet by mouth daily. 2 Active metoprolol succinate 50 MG 24 hr tablet Take 50 mg by mouth daily. 8 Active pravastatin 20 MG tablet Take 20 mg by mouth nightly at bedtime. 7 Active losartan 100 MG tablet Take 100 mg by mouth daily. Active potassium chloride CR 10 MEQ CR capsule TAKE 1 CAPSULE BY MOUTH THREE TIMES DAILY WITH FOOD 0 Active fish oil (OMEGA-3 FATTY ACID) 1000 MG Cap capsule Take 1,000 mg by mouth 2 (two) times daily. Active Active Problems Problem Noted Date Diagnosed Date Coronary artery disease invo lving zuni coronary artery of zuni heart without angina pectoris 04/15/2020 BPH (benign prostatic hyperplasia) 09/25/2017 Dyspnea 09/25/2017 GERD (gastroesophageal reflux disease) 8 Hypercholesteremia 09/25/2017 Hypertension 09/25/2017 Obesity 09/25/2017 Resolved Problems Problem Noted Date Diagnosed Date Resolved Date Peripheral neuropathy 09/25/20172017 Social History Tobacco Use Types Packs/Day Years Used Date Smoking Tobacco: Former Cigarettes Q uit: 1997 Smokeless Tobacco: Never Sex and Gender Information Value Date Recorded Sex Assigned at Not on file Legal Sex Male 10:44 PM CDT Gender Identity Not on file Sexual Orientation Not on file Last Filed Vital Signs Vital Sign Reading Time Taken Comments Blood Pressure 143/61 03/31/2020 10:25 AM CDT Pulse 65 03/31/2020 10:20 AM CDT Temperature 36.4 C (97.5 F) 10/05/2017 11:41 AM CDT Respiratory Rate 22 03/31/2020 10:20 AM CDT Oxygen Saturation 97% 03/31/2020 10:20 AM CDT Inhaled Oxygen Concentration - - Weight 120.7 kg (266 lb) 03/31/2020 10:20 AM CDT Height 180.3 cm (5' 11) 03/31/2020 10:20 AM CDT Body Mass Index 37.1 03/31/2020 10:20 AM CDT Plan of Treatment Health Maintenance Due Date Last Done Comments ASCVD Statin 1941 DTaP, Tdap and Td Vaccines ( 1 - Tdap) 1960 Zoster Vaccines (1 of 2) 1991 Annual Medicare Wellness Visit 2006 Pneumococcal Vaccine: 50+ Years (2 of 2 - PPSV23) 02/03/2015 12/09/2014 RSV Immunization or 60+ Years (1 - 1-dose 75+ series) 2016 ASCVD LDL 08/07/2018 08/07/2017, 12/22/2003 COVID-19 Vaccine ( - 2023-2 5 season) 2024 Meningococcal B Vaccine Aged Out No l onger eligible based on patient's age to complete this topic Meningococcal Vaccine Aged Out No park raj eligible based on patient's age to complete this topic RSV Immunizations Under 20 Months Aged Out No longer eligible b ased on patient's age to complete this topic Procedures Procedure Name Priority Date/Time Associated Diagnosis Comments LIPID PANEL Routine 08/07/2017 from Last 3 Months or Most Recently Relevant to Health Maintenance Results * LIPID PANEL (08/07/2017) CHOLESTEROL 194 HDL 53 TRIGLYCERIDES 213 LDL (CALCULATED) 98 08/07/2017 us Doc [facility] LABORATORY Final Result from Last 3 Months or Most Recently Relevant to Health Maintenance Insurance [place] [address] [place] [address] MEDICARE Advance Directives * Full Code (Latest Code Status on File) Date Activated Date Inactivated Comments 10/05/2017 5:21 PM 10/05/2017 7:36 PM Care Teams Contact Lens Blocker Relationship Specialty Start Date End Date Hernan Londono MD [address] [place] [address] PCP - General INTERNAL MEDICINE 09/19/17 Jung Cueto MD [address] [place] [address] [place] Acupuncture Physician CARDIOVASCULAR DISEASE 09/19/17
== END 2025-01-13 12:56 | disposition home or self-care (01) ==
PROVIDERS: PCP Internal Medicine; Visit Provider Internal Medicine
DX: I65.23 Occlusion and stenosis of bilateral carotid arteries (principal)
CPT/HCPCS: 93880

== ENCOUNTER 2025-03-01 11:30 | Emergency (ER) | payer MEDICARE, SELFPAY ==
[2025-03-01 11:31] VITALS: BP 164/57; RESP 18; TEMP 37.7
[2025-03-01 11:34] VITALS: PULSE 58; O2SAT 97
--- NOTE | 2025-03-01 11:36 | ED.UPPEXIN ---
HPI - Extremity Injury (Upper) General Chief Complaint: Extremity Injury, Upper Stated Complaint: left arm swelling/pain Time Seen by Provider: 03/01/25 11:35 Source: patient Mode of arrival: ambulatory Limitations: no limitations History of Present Illness HPI narrative: patient is an 84-year-old male with a left hand inflammation and pain for the past 2 days. He did have a cat scratch from his own cat up-to-date on vaccines 2 weeks ago to the same area. He is having passive and active range of motion and palpation pain. MD complaint: injury to: left, wrist, hand and finger Other Extremity Injury: Left: fingers, hand and wrist Other injuries: none Place: home Severity: mild Severity scale (1-10): 3 Relieving factors: none Exacerbating factors: movement of extremity Context: other ( Cat scratch 2 weeks ago to the left hand as well as now 2 days of left hand pain and swelling and redness) Associated symptoms: other ( fever) Treatments prior to arrival: other ( none) Related Data Home Medications ?Medication ?Instructions ?Recorded ?Confirmed ?Last Taken ?Type amlodipine 10 mg tablet 10 mg PO DAILY 04/17/22 04/17/22 Unknown History dutasteride 0.5 mg capsule 0.5 mg PO DAILY 04/17/22 04/17/22 Unknown History furosemide 40 mg tablet 40 mg PO DAILY 04/17/22 04/17/22 Unknown History losartan 100 mg tablet 100 mg PO DAILY 04/17/22 04/17/22 Unknown History metoprolol succinate 50 mg 50 mg PO DAILY 04/17/22 04/17/22 Unknown History tablet,extended release 24 hr omeprazole 40 mg capsule,delayed 40 mg PO BID 04/17/22 04/17/22 Unknown History release potassium chloride 10 mEq 10 meq PO TID 04/17/22 04/17/22 Unknown History capsule,extended release pravastatin 40 mg tablet 40 mg PO DAILY 04/17/22 04/17/22 Unknown History tamsulosin 0.4 mg capsule 0.4 mg PO DAILY 04/17/22 04/17/22 Unknown History Allergies Allergy/AdvReac Type Severity Reaction Status Date / Time No Known Allergies Allergy Verified 03/01/25 11:35 Review of Systems Review of Systems: All systems reviewed & are unremarkable except as noted in HPI and below Constitutional: Constitutional: Reports no additional constitutional complaints Eyes: Eyes: Reports no additional eye complaints ENT: Reports system reviewed and no additional complaints, except as documented Cardiovascular: Cardiovascular: Reports no additional cardiovascular complaints Respiratory: Respiratory: Reports no additional respiratory complaints Gastrointestinal: Gastrointestinal: Reports no additional gastrointestinal complaints Genitourinary: Genitourinary: Reports no additional male genitourinary complaints Musculoskeletal: Musculoskeletal: Reports no additional musculoskeletal complaints Integumentary/Breasts: Skin/Breast: Reports system reviewed and no additional complaints, except as docu Neurologic: Reports system reviewed and no additional complaints, except as documented Psychiatric: Psychiatric: Reports no additional psychiatric complaints Endocrine: Endocrine: Reports no additional endocrine complaints Hematologic/Lymphatic: Hematologic/Lymphatic: Reports no additional hematologic/lymphatic complaints Allergic/Immunologic: Allergic/Immunologic: Reports no additional allergic/immunologic complaints [facility] Past Medical History Medical History GERD (gastroesophageal reflux disease) Hypertension BPH (benign prostatic hyperplasia) Surgical History Surgical History History of appendectomy Social History Social History Smoking status: Never smoker Alcohol intake: never Substance use: never Living arrangements: with family Exam Const: General: healthy appearing Nutritional Appearance: well nourished Orientation/consciousness: patient oriented x3 HENMT: Head: normal to inspection Ears: external ears normal Face/Nose/Sinus: Normal external nose present Eyes: Conjunctivae: conjunctivae normal Pupils: Equal, round and reactive pupils present EOM: EOMs intact bilaterally Neck: Neck: normal visual inspection Chest: Chest palpation & inspection: normal inspection of the chest Resp: Effort & Inspection: normal respiratory effort and not labored Auscultation: clear to auscultation bilaterally and no crackles Cardio: Rate: regular rate Rhythm: regular rhythm Heart sounds: no murmurs GI: Inspection: non-distended GI Palp: Yes Soft to palpation and No Tenderness to palpation present (GI) Auscultation: normal bowel sounds : General: Yes bladder normal to palpation Back/Spine/Pelvis: Back: no CVA tenderness Skin: General skin exam: No normal color Rashes: no rashes Wounds: wound noted Other: left hand is red with erythema from wrist to mid fingers with swelling and pain; there is 2 areas of cat scratch healing wounds without pus Neuro: General: patient oriented x3, moves all extremities and no meningeal signs Extrem: General: normal to inspection, no clubbing, cyanosis or edema and no pedal edema Psych: Mental Status: mental status grossly normal Affect: normal affect Attitude: cooperative Course Vital Signs Vital signs: Vital Signs Temperature 37.7 C H 03/01/25 11:31 Respiratory Rate 18 03/01/25 11:31 Blood Pressure 164/57 H 03/01/25 11:31 Temperature 37.7 C H 03/01/25 11:31 Pulse Rate 58 L 03/01/25 11:34 Respiratory Rate 18 03/01/25 11:31 Blood Pressure 164/57 H 03/01/25 11:31 Pulse Oximetry 97 03/01/25 11:34 Oxygen Delivery Room Air 03/01/25 11:34 MDM - Extremity Injury (Upper) MDM Narrative Medical decision making narrative: patient is an 84-year-old male with a left hand inflammation and pain for the past 2 days. He did have exposure to cat scratch at home. We will do labs and start him on Rocephin and azithromycin. We will go ahead and try outpatient treatment and if he further fails that treatment in the next week then he may need admission for IV antibiotics. We will do outpatient trial of oral antibiotics using 2 antibiotics. Lab Data Attestation: I reviewed the patient's lab results. 03/01/25 11:58 03/01/25 11:58 Labs: Lab Results 03/01/25 Range/Units 11:58 WBC 13.5 H (4.8-10.8) K/mm3 RBC 4.23 L (4.70-6.10) M/mm3 Hgb 13.6 (12.4-15.3) g/dL Hct 41.6 (37.0-46.0) % MCV 98.3 (78.0-102.0) fL MCH 32.2 H (27.0-31.0) pg MCHC 32.7 (32-36) g/dL RDW 12.3 (11.6-14.4) % Plt Count 185 (150-420) K/mm3 MPV 9.9 (8.7-11.0) fl Immature Gran % (Auto) 0.4 H (0.0-0.0) % Neut % (Auto) 80.1 H (50.0-70.0) % Lymph % (Auto) 7.9 L (18.0-42.0) % [place] % (Auto) 9.8 (2.0-11.0) % Eos % (Auto) 1.6 (1.0-6.0) % Baso % (Auto) 0.2 (0.0-1.0) % Lymph # (Auto) 1.06 L (1.10-4.50) K/mm3 [place] # (Auto) 1.32 H (0.10-0.90) K/mm3 Eos # (Auto) 0.22 (0.02-0.50) K/mm3 Baso # (Auto) 0.03 (0.00-0.10) K/mm3 Abs Immat Gran (auto) 0.05 H (0.00-0.00) K/mm3 Absolute Neuts (auto) 10.80 H (1.70-7.20) K/mm3 Absolute Nucleated RBC 0.00 (0.00-0.00) K/mm3 Nucleated RBC % 0.0 (0-0.0) % Sodium 138 (137-145) mmol/L Potassium 4.5 (3.4-5.0) mmol/L Chloride 105 (98-107) mmol/L Carbon Dioxide 27 (22-30) mmol/L Anion Gap 6 (4-12) mmol/L BUN 18 (9-20) mg/dL Creatinine 0.75 (0.7-1.3) mg/dL Estim Creat Clear Calc 83 ml/min Estimated GFR > 60 (59 - ) Glucose 112 H (65-110) mg/dL Calculated Osmolality 288 (285-295) mOsm/kg Lactic Acid 1.2 (0.4-2.0) mmol/L Calcium 10.5 H (8.4-10.2) mg/dL Total Bilirubin 1.3 (0.2-1.3) mg/dL AST 33 (17-59) U/L ALT 32 (6-50) U/L Alkaline Phosphatase 66 (38-126) U/L Total Protein 6.6 (6.3-8.2) g/dL Albumin 4.1 (3.5-5.1) g/dL Discharge Plan Discharge Clinical Impression: Cellulitis of hand Patient Disposition: Home Condition: Stable Instructions: Antibiotic Form, Cellulitis (ED) Additional Instructions: Please follow-up with primary doctor in the next week. Come back to the emergency room if there is any worsening of this left hand on antibiotics. Patient Language: Romanian Prescriptions: New azithromycin 250 mg tablet See Rx Instructions .ROUTE .COMPLEX Qty: 6 0RF Rx Instructions: For 250 mg dose pack: take 500 mg today (day 1), then 250 mg for 4 days (days 2-5) amoxicillin-pot clavulanate 875-125 mg tablet 1 tablet PO BID 10 Days Qty: 20 0RF No Action furosemide 40 mg tablet 40 mg PO DAILY potassium chloride 10 mEq capsule, extended release 10 meq PO TID pravastatin 40 mg tablet 40 mg PO DAILY metoprolol succinate 50 mg tablet extended release 24 hr 50 mg PO DAILY omeprazole 40 mg capsule,delayed release(DR/EC) 40 mg PO BID tamsulosin 0.4 mg capsule 0.4 mg PO DAILY amlodipine 10 mg tablet 10 mg PO DAILY losartan 100 mg tablet 100 mg PO DAILY dutasteride 0.5 mg capsule 0.5 mg PO DAILY Follow-up/Referrals: Hernan Londono MD [Primary Care Provider, Internal Medicine] Time of Disposition: 12:58
[2025-03-01] MEDS: cefTRIAXone 1 GM, LIDOCAINE 1% LOCAL INJ 2.1 ML IM (11:56)
[2025-03-01] MEDS: AZITHROMYCIN 250 MG TABLET 500 MG PO (11:56)
[2025-03-01 12:06] LABS: Hematocrit 41.6 % (37.0-46.0); Hemoglobin 13.6 g/dL (12.4-15.3); Immature Granulocyte Percent A 0.4 % (0.0-0.0); Lymphocytes Absolute Auto 1.06 K/mm3 (1.10-4.50); Mean Corpuscular HGB Conc 32.7 g/dL (32-36); Mean Corpuscular Hemoglobin 32.2 pg (27.0-31.0); Mean Corpuscular Volume 98.3 fL (78.0-102.0); Nucleated Red Blood Cells Absolute Auto 0.00 K/mm3 (0.00-0.00); Nucleated Red Blood Cells Perc 0.0 % (0-0.0); Platelet Count Result 185 K/mm3 (150-420); Red Blood Count 4.23 M/mm3 (4.70-6.10); White Blood Count 13.5 K/mm3 (4.8-10.8)
[2025-03-01 12:17] LABS: Alanine Aminotransferase 32 U/L (6-50); Albumin Level 4.1 g/dL (3.5-5.1); Alkaline Phosphatase 66 U/L (38-126); Anion Gap 6 mmol/L (4-12); Aspartate Amino Transferase 33 U/L (17-59); Bilirubin,Total 1.3 mg/dL (0.2-1.3); Blood Urea Nitrogen 18 mg/dL (9-20); Calcium 10.5 mg/dL (8.4-10.2); Carbon Dioxide 27 mmol/L (22-30); Chloride 105 mmol/L (98-107); Estimated CRCL calculation 83 ml/min; Estimated Glomerular Filt Rate > 60; Glucose 112 mg/dL (65-110); Osmolality Calculated 288 mOsm/kg (285-295); Potassium 4.5 mmol/L (3.4-5.0); Sodium 138 mmol/L (137-145); Total Protein 6.6 g/dL (6.3-8.2)
--- OUTSIDE RECORDS SUMMARY | 2025-03-01 12:18 | XMS_ITS | Encounter Summary ---
Author Organization [facility] Healthcare Address [address] [place] [id number] Care Team Providers Care Bill Cutter Name Role Phone Hernan Londono MD Primary Care Provider [phone] Encounter Details Date Type Department Care Team (Late st Contact Info) Description 05/20/2024 [place] Only [facility] [place] [address] [place] [id number] Scanning, Provider Social History Tobacco Use Types Packs/Day Years Used Date Smoking Tobacco: Former Cigarettes Q uit: 2000 AUDIT-C Answer Date Recorded Frequency of Alcohol [...] on file documented as of this encounter Procedures Procedure Name Priority Date/Time Associated Diagnosis Comments SCAN - LABS 05/20/2024 documented in this encounter Results * SCAN - LABS (05/20/2024) us Provider Scanning Final Result documented in this encounter Visit Diagnoses Not on filedocumented in this encounter Care Teams Bill Cutter Relationship Specialty Start Date End Date Hernan Londono MD [address] [place] [address] PCP - General Internal Medicine 10/20/21 documented as of this encounter
--- OUTSIDE RECORDS SUMMARY | 2025-03-01 12:19 | XMS_ITS | Encounter Summary ---
Author Organization [facility] Address [address] [place] [address] Care Team Providers Care .Net Programmer Name Role Phone Hernan Londono MD Primary Care Provider [phone] Jung Cueto MD Unavailable [phone] Encounter Details Date Type Department Care Team (Late st Contact Info) Description 03/13/2017 Abstract [facility] CONVERSION [address] [place] [address] , Generic Conversion, Social History [...] on filedocumented in this encounter Care Teams .Net Programmer Relationship Specialty Start Date End Date Hernan Londono MD [address] [place] [address] PCP - General INTERNAL MEDICINE 09/19/17 Jung Cueto MD [address] [place] [address] [employer] Specialist CARDIOVASCULAR DISEASE 09/19/17 documented as of this encounter
--- OUTSIDE RECORDS SUMMARY | 2025-03-01 12:19 | XMS_ITS | Clinical Summary ---
Author Organization [facility] [place] [address] [facility] [address] Address [address] [place] [address] Care Team Providers Care Media Clerk Name Role Phone Hernan Londono MD Primary Care Provider [phone] Allergies No known active allergies Medications dutasteride [...] Active amLODIPine (NORVASC) 10 mg tablet Take 0.5 tablets (5 mg total) by mouth daily 11/16/2021 Active [...] (100 mg total) by mouth daily Active tfkao-1-wjx-epa -dpa-fish oil 1,050-1,200 mg capsule 1 capsule Active ascorbic acid (VITAMIN C) 500 mg tablet,chewable Acti ve fwsmclab78-afza -Lmfolate-algal 27 mg iron-1.13 mg-581.92 mg capsule Take by mouth Active cyanocobalamin (Vitamin B-12) 100 mcg tabletIndicatio ns:Prevention of Vitamin B12 Deficiency Take 1 tablet (100 mcg total) by mouth daily Active cholecalciferol (VITAMIN D-3) 1,000 unit capsule Take 1 capsule (1,000 Units total) by mouth daily 12/15/2011 Active levOCARNitine tartrate 250 mg capsule Take 500 mg by mouth daily Active pravastatin (PRAVACHOL) 80 mg tablet Take 1 tablet by mouth once daily 90 tablet 01/26/2025 Active ezetimibe (ZETIA) 10 mg tablet Take 1 tablet by mouth once daily 90 tablet 01/26/2025 Active metoprolol XL (TOPROL-XL) 25 mg extended release tabletIndicatio ns: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 Take 1 tablet by mouth once daily 90 tablet 01/27/2025 Active Active Problems Problem Noted Date Diagnosed [...] artery disease of n ative artery of nightmute heart with stable angina pectoris 02/03/2022 Mixed hyperlipidemia 02/03/2022 Abnormal ECG 02/03/2022 Class 1 obesity due to exces s calories with serious comorbidity and body mass index (BMI) of 34.0 to 34.9 in adult 02/03/2022 Encounters Date Type Department Care Team Description 02/17/2025 2:15 PM CDT Office Visit [facility] Cardiology [address] [place] [address] Danny Johnson MD Cardiac pacemaker in situ (Primary Dx); Bifascicular block 01/28/2025 2:30 PM CDT Ancillary Procedure [facility] [address] [place] [address] Bradycardia; Bifascicular block; Cardiac pacemaker in situ 01/28/2025 Orders Only [facility] Cardiology [address] [place] [phone] Danny Johnson MD Bifascicular block (Primary Dx); Bradycardia; Cardiac pacemaker in situ; Atrial fibrillation, unspecified type (HCC) 01/27/2025 Telephone [facility] Cardiology [address] [place] [phone] Danny Johnson MD 12/11/2024 12:30 PM CDT Ancillary Procedure [facility] Cardiology [address] [place] [phone] Bifascicular block; Bradycardia; Cardiac pacemaker in situ 12/11/2024 Telephone [facility] Cardiology [address] [place] [phone] Danny Johnson MD from Last 3 [...] Sign Reading Time Taken Comments Blood Pressure 126/62 02/17/2025 2:03 PM CDT Pulse 56 02/17/2025 2:03 PM CDT Temperature 36.4 C (97.5 F) 10/16/2023 7:45 AM CDT Respiratory Rate 14 01/15/2024 9:54 AM CDT Oxygen Saturation 96% 02/17/2025 2:03 PM CDT Inhaled Oxygen Concentration - - Weight 112.7 kg (248 lb 8 oz) 02/17/2025 2:03 PM CDT Height 180.3 cm (5' 11) 02/17/2025 2:03 PM CDT Body Mass Index 34.66 02/17/2025 2:03 PM CDT Plan of Treatment Health Maintenance Due Date Last Done Comments Depression Screening 1941 DTaP/Tdap/Td Vaccine (1 - Tdap) 1952 Hepatitis B Screening 1959 Zoster Vaccine (1 of 2) 1991 Well Visit 65+ 2006 Pneumococcal vaccine 65+ (2 of 2 - PPSV23, PCV20, or PCV21) 02/03/2015 12/09/2014, 04/30/2009 Covid-19 Vaccine (2023-2 5 season) 2024 06/21/2021, 11/19/2020, 10/22/2020 Fall Risk Assessment 10/15/2024 10/16/2023, 10/09/19 24 Influenza Vaccine (#1) 2025 , 04/27/2020, 04/30/2019, Additional history exists Medical Devices Implanted Type Area Precise Winder Device Identifier Shelf Expiration Date Model / Serial / Lot [employer] Tendril Sts 6fr 58cm Is-1 Connector Active Fixation Bipolar Soft /58 - [id number] - [id number] Implanted:Qty: 1 on 10/15/2023 by Tyron Corbett MD at [facility] Lead [employer] 09/05/20262087TC/58 / [id number] / [employer] Tendril Sts 6fr 52cm Is-1 Connector Active Fixation Bipolar Soft [id number]/52 - [id number] - [id number] Implanted:Qty: 1 on 10/15/2023 by Tyron Corbett MD at [facility] Lead [employer] 09/05/2026 [id number] / [id number] / [employer] Assurity Mri [id number] Chamber Is-1 Connector Thk6mm Pacemaker [id number] - [id number] - [id number] Implanted:Qty: 1 on 10/15/2023 by Tyron Corbett MD at [facility] Pacemaker [employer] 02/05/2025 [id number] / [id number] / Procedures Procedure Name Priority Date/Time Associated Diagnosis Comments ECG 12-LEAD Routine 02/17/2025 3:33 PM CDT Cardiac pacemaker in situ Bifascicular block DEVICE CHECK - IN OFFICE Routine 01/28/2025 2:07 PM CDT Bradycardia Bifascicular block Cardiac pacemaker in situ DEVICE CHECK - REMOTE Routine 12/11/2024 4:57 PM CDT Bifascicular block Bradycardia Cardiac pacemaker in situ from Last 3 Months Results * ECG 12 lead (02/17/2025 3:33 PM CDT) us Danny Johnson MD ECG ORDERABLES Final Re sult * DEVICE CHECK - IN OFFICE (01/28/2025 2:07 PM CDT) Anatomical Region Laterality Modality Other Narrative 01/30/2025 12:18 PM CDT [employer] Assurity Dual Pacemaker. Dx; Bradycardia, Bifascicilar Block. DOI 10/15/2023-Aric. [place] remote. Supervising MD: Dr Pabon. Left pectoral incision well approximated. No redness, drainage, or edema noted. Office DDD Pacemaker interrogation demonstrated appropriate device function. Appropriate lead measurements noted. Battery function: 2.98V, 5.3 years remaining battery life to LEVI. Presenting rhythm- AP-VS. Underlying rhythm-SB 50 bpm. AP- 67 %, WASH DRILLER- 70 %. 6 Atrial high rate episodes recorded, iegm's AT/AF on 12/07/24, 8 hours duration. 1 Ventricular high rate episode noted on 01/09/2024, iegm NSVT, 8 beat duration. Medications; ASA 81 mg, Toprol XL. Atrial auto capture turned off d/t it was set @ high output of 5.0V. Atrial amplitude decreased to 1.5V. Percent V-pacing alert turned off. See scanned report. Office pacemaker f/u scheduled 05/05/2026. [place] remote f/u 05/05/2025. Angelica Mary RN Tyron Corbett MD [facility] AR OCEDURES Final Result * DEVICE CHECK - REMOTE (12/11/2024 4:57 PM CDT) Anatomical Region Laterality Modality Other Narrative 12/30/2024 12:50 PM CDT [employer] Assurity Dual Pacemaker. Dx; Bradycardia, Bifascicular Block. NSVT noted on 01/14/24. DOI 10/15/2023-Aric. [place] remote. [place] remote alert and notification received for long AT AF episode. 8 hours of AFib noted on 12/07/2024. Ventricular rate controlled. Presenting rhythm: APVP. Medications: ASA 81 mg, Toprol-XL. See scanned report. [place] remote scheduled 01/28/2025. Office follow-up with Dr. Johnson scheduled 02/17/2025. Angelica Mary RN us Danny Johnson MD [facility] PROC EDURES Final Result from Last 3 Months Insurance MEDICARE MEDICARE BLUE CROSS MEDICARE SUPPLEMENT MEDICARE [facility] Advance Directives For more information, please contact: [phone] * Full Code (Latest Code Status on File) Date Activated Date Inactivated Comments 10/15/2023 9:42 AM 10/16/2023 4:02 PM Care Teams Media Clerk Relationship Specialty Start Date End Date Hernan Londono MD [address] [place], [place] [id number] PCP - General Internal Medicine 10/20/21
[2025-03-01 13:05] VITALS: BP 138/64; PULSE 58; RESP 16; TEMP 36.9; O2SAT 96
[2025-03-01 13:08] VITALS: BP 131/69; PULSE 79; RESP 18; TEMP 36.9; O2SAT 97
--- NOTE | 2025-03-04 13:22 | PC.NURSE ---
PRELIMINARY BLOOD CULTURE NO GROWTH AT THIS TIME
--- NOTE | 2025-03-05 14:21 | PC.NURSE ---
preliminary blood culture reviewed. no growth in 24 hours.
--- NOTE | 2025-03-06 12:33 | PC.NURSE ---
PRELIMINARY BLOOD CULTURE NO GROWTH FOR 48 HOURS
--- NOTE | 2025-03-09 17:08 | PC.NURSE ---
Final blood culture report; no growth in 5 days.
== END 2025-03-01 13:08 | disposition home or self-care (01) ==
PROVIDERS: Emergency Provider Emergency Medicine; PCP Internal Medicine
DX: L03.114 Cellulitis of left upper limb (principal); I10 Essential (primary) hypertension; W55.03XA Scratched by cat, initial encounter
CPT/HCPCS: 36415; 80053; 83605; 85025; 87040; 96372; 99283; A9270; J0696; J2003